=== PATIENT | male | born 1960 | race American Indian/Alaskan Native ===

== ENCOUNTER 2018-06-16 08:20 | Outpatient (CLI) | payer MEDICAID | END 2018-06-16 08:21 | disposition home or self-care (01) | LOC: C.CTH 08:20 | DX: R31.9 Hematuria, unspecified (principal) ==

== ENCOUNTER 2018-08-02 08:58 | Emergency (ER) | payer MEDICAID ==
[2018-08-02 08:58] VITALS: BMI 20.3
[2018-08-02 09:11] VITALS: RESP 18; O2SAT 95
--- NOTE | 2018-08-02 09:38 | C.PDOC ---
History Of Present Illness 58 year old male presents for evaluation of new onset right scrotal swelling x2 days associated with subjective fever and chills x3 days. The patient reports chronic hematuria and nausea but denies BPH, abdominal pain, vomiting, and any other associated symptoms. NEW ONSET R SCROTAL SWELL X 2 DAYS. +FEVER CHILLS X 3 DAYS. +CHRONIC HEMATURIA HO BPH. DENIES ABD PAIN. +NAUSEA. EXAM MILD DIST NONTOXIC ABD NEG CIRCUM. +R SCROTAL SWELL W UPPER POLE TEND NO PENILE LESIONS/DC; NO PALP HERNIA REMAINDER NEG Time Seen by Provider: 08/02/18 09:18 Chief Complaint (Nursing): Male Genitourinary History Per: Patient History/Exam Limitations: no limitations Onset/Duration Of Symptoms: Days Current Symptoms Are (Timing): Still Present Associated Symptoms: Fever, Nausea. denies: Vomiting Recent travel outside of the [place]: No Past Medical History Reviewed: Historical Data, Nursing Documentation, Vital Signs Vital Signs: Last Vital Signs Temp 98.6 F 08/02/18 09:02 Pulse 100 H 08/02/18 09:02 Resp 18 08/02/18 09:02 BP 132/82 08/02/18 09:02 Pulse Ox 95 08/02/18 09:02 - Medical History PMH: HTN, Hypercholesterolemia Family History: States: Unknown Family Hx - Social History Hx Alcohol Use: No Hx Substance Use: No - Immunization History Hx Tetanus Toxoid Vaccination: No Hx Influenza Vaccination: No Hx Pneumococcal Vaccination: No Review Of Systems Except As Marked, All Systems Reviewed And Found Negative. Constitutional: Positive for: Fever (subjective. ), Chills Gastrointestinal: Positive for: Nausea. Negative for: Vomiting, Abdominal Pain Genitourinary: Positive for: Hematuria, Other ((-) BPH. ) Physical Exam - Physical Exam Appears: Non-toxic, Other ((+) mild distress. ) Skin: Warm, Dry, No Rash Head: Atraumatic, Normacephalic Eye(s): bilateral: Normal Inspection Oral Mucosa: Moist Neck: Normal ROM Chest: Symmetrical, No Deformity Cardiovascular: Rhythm Regular, No Murmur Respiratory: Normal Breath Sounds, No Rales, No Rhonchi, No Wheezing, No Other (NARD) Gastrointestinal/Abdominal: Normal Exam, Soft, No Tenderness, No Hernia (none visible. ) Male Genital: Scrotal Swelling ((+) RT with upper pole tenderness. ), No Other ((-) penile lesions. (-) discharge. (-) no palpable hernia. ) Extremity: Bilateral: Atraumatic, Normal Color And Temperature, Normal ROM Neurological/Psych: Oriented x3, Normal Speech, Normal Cognition ED Course And Treatment - Laboratory Results Result Diagrams: 08/02/18 10:10 08/02/18 10:10 O2 Sat by Pulse Oximetry: 95 (RA) Pulse Ox Interpretation: Normal Medical Decision Making Medical Decision Making: Initial plan: -Testicular US -Blood sent. -Rocephin -Toradol -Urine culture -Influenza Disposition Counseled Patient/Family Regarding: Studies Performed, Diagnosis, Need For Followup, Rx Given - Disposition Referrals: Hannah Douglas MD [Staff Provider] - Disposition: HOME/ ROUTINE Disposition Time: 11:50 Condition: IMPROVED Prescriptions: Ibuprofen [Motrin Tab] 600 mg PO Q6 #30 tab levoFLOXacin [Levaquin] 500 mg PO DAILY #10 tab Instructions: Epididymitis (DC) Forms: [facility] (Czech), Work Excuse - Clinical Impression Clinical Impression: Epididymitis with no abscess - Scribe Statement The provider has reviewed the documentation as recorded by the Scribe (Mercedes Cao) Provider Attestation: All medical record entries made by the Scribe were at my direction and personally dictated by me. I have reviewed the chart and agree that the record a ccurately reflects my personal performance of the history, physical exam, medical decision making, and the department course for this patient. I have also personally directed, reviewed, and agree with the discharge instructions and disposition.
[2018-08-02 10:15] LABS: BASO # 0.1 K/uL (0.0-0.2); BASO % 0.6 % (0.0-2.0); EOS % 0.1 % (0.0-4.0); HEMOGLOBIN 13.6 g/dL (12.0-18.0); LYMPH # 1.2 K/uL (1.0-4.3); LYMPH % 11.9 % (20.0-40.0); MEAN CELL VOLUME 88.6 fL (80.0-94.0); MEAN CORPUSCULAR HGB CONC 33.8 g/dL (33.0-37.0); MEAN PLATELET VOLUME 8.6 fL (7.2-11.7); NEUT # 7.8 K/uL (1.8-7.0); NEUT % 77.4 % (50.0-75.0); RBC 4.53 Mil/uL (4.40-5.90); RED CELL DISTRIBUTION WIDTH 12.7 % (11.5-14.5)
[2018-08-02 10:16] LABS: WHITE BLOOD COUNT 10.1 K/uL (4.8-10.8)
[2018-08-02 10:19] LABS: SQUAMOUS EPITHIAL 2 /hpf (0-5); URINE BACTERIA RARE (<OCC); URINE BILIRUBIN NEGATIVE (NEGATIVE); URINE BLOOD NEGATIVE (NEGATIVE); URINE CLARITY Hazy (Clear); URINE COLOR Amber (YELLOW); URINE GLUCOSE (UA) 2+ mg/dL (Normal); URINE LEUKOCYTE ESTERASE 3+ Leu/uL (Negative); URINE PROTEIN 1+ mg/dL (NEGATIVE)
[2018-08-02 10:27] LABS: BLOOD UREA NITROGEN 13 mg/dL (9-20); CALCIUM 9.1 mg/dl (8.6-10.4); GFR NON-AFRICAN AMERICAN > 60
--- NOTE | 2018-08-02 11:48 | US ---
Date of service: 08/02/2018 HISTORY: R TEST PAIN, SWELL TECHNIQUE: Realtime sonography through the scrotum with color and doppler flow. COMPARISON: None Available. FINDINGS: RIGHT TESTICLE: Measures 4.6 x 3.5 x 3.1 cm. Mildly heterogeneous echotexture. Hypervascular. Consistent with orchitis. No mass. There is mild ectasia of the right rete testis. RIGHT EPIDIDYMIS: Mildly enlarged.. Hypervascular. Consistent with epididymitis. Epididymal cyst, 8 mm. LEFT TESTICLE: Measures 5.2 x 2.9 x 3.6 cm. Homogeneous echotexture. No mass. Normal flow demonstrated. LEFT EPIDIDYMIS: Normal size, morphology and vascularity.No mass. HYDROCELE: Complex right hydrocele with septations. Likely related to epididymo-orchitis. No left hydrocele. There is a fluid collection which does not surround the left testicle but is within the scrotum, measuring 0.9 x 2.8 x 3.5 cm. This does not demonstrate peripheral hypervascularity. Significance unclear. VARICOCELE: None. OTHER FINDINGS: None. IMPRESSION: Right epididymo-orchitis. Complex right hydrocele. Incidental 3.5 cm left extratesticular fluid collection of uncertain significance. Unlikely abscess given the absence of peripheral hypervascularity.
[2018-08-02 12:09] VITALS: BP 112/77; PULSE 85; TEMP 98.1
== END 2018-08-02 12:05 | disposition home or self-care (01) ==
LOC: C.ER 08:58
DX: N45.1 Epididymitis (principal); I10 Essential (primary) hypertension; E78.00 Pure hypercholesterolemia, unspecified; Z87.891 Personal history of nicotine dependence
CPT/HCPCS: 76870; 80048; 81001; 85025; 87086; 87181; 87804; 96365; 96375; 99285; J0696; J1885